=== PATIENT | male | born 1975 | race Caucasian/White ===

== ENCOUNTER 2017-05-13 17:43 | Emergency (ER) | payer OTHER ==
[2017-05-13] MEDS ORDERED: LIBRIUM 25 MG PO ONE (17:53)
[2017-05-13] MEDS ORDERED: Sodium Chloride 0.9% 1000 ML 1,000 ML IV STA ×2 (18:14→19:26)
[2017-05-13] MEDS ORDERED: Sodium Chloride 0.9% 1000 ML 1,000 ML ONE ×2 (18:19→19:30)
[2017-05-13 18:45] LABS: Mean Cell Volume 85.8 fl (78-100); Mean Corpuscular Hemoglobin 29.8 pg (26-32); Mean Platelet Volume 10.2 fl (6-9.5); Platelet Count 243 K/mm3 (150-450); Red Cell Distribution Width 13.7 % (11.5-14.0)
[2017-05-13 19:03] LABS: ALBUMIN 3.7 g/dL (3.4-5.0); ALKALINE PHOSPHATASE 42 U/L (46-116); ANION GAP 14.4 MEQ/L (5-15); BLOOD UREA NITROGEN 12 mg/dL (9-20); CHLORIDE 107 mEq/L (98-107); Carbon Dioxide 22.4 mEq/L (21-32); Glucose 112 MG/DL (70-110); Potassium 3.3 mEq/L (3.5-5.1); SGOT/AST 19 U/L (15-37); SGPT/ALT 29 U/L (12-78); SODIUM 141 mEq/L (136-145); Total Protein 6.6 gm/dL (6.4-8.2)
--- NOTE | 2017-05-13 19:05 | ERPHSYRPT ---
- History of Present Illness Time Seen by Provider: 05/13/17 18:00 Source: patient Exam Limitations: clinical condition Patient Subjective Stated Complaint: pt here for high blood pressure and increase heart rate.b/p was 160/110 taken at home with hr of 115. pt states he has throbbing to head ,slight nausea Triage Nursing Assessment: pt walked in, resp easy, skin w/d, pink,no edema noted, moves all ext well, hr regular Physician History: PATIENT WITH HISTORY OF HYPERTENSION, DEPRESSION, MIGRAINE HEADACHES, AND CHRONIC PAIN COMPLAINS OF RAPID HEART RATE AND ELEVATED BLOOD PRESSURE FOR 1-2 WEEKS. TREATED AT [facility] FOR TACHYCARDIA WITH DIZZINESS AFTER DONATING PLASMA ON 05/08/2017. ALSO ADMITS TO HAVING EMESIS 2-3 TIMES DAILY FOR 4-5 DAYS. DENIES CHEST PAIN, DYSPNEA, ABDOMINAL PAIN OR DIARRHEA. Timing/Duration: day(s) Activities at Onset: none Severity of Pain-Max: none Severity of Pain-Current: none Modifying Factors: Improves With: other (RAPID HEART BEAT) Nitro Today/Relief: no nitro taken today Aspirin Treatment Today: no aspirin today Associated Symptoms: other (ELEVATED BLOOD PRESSURE, RAPID HEART RATE) Allergies/Adverse Reactions: Penicillins Allergy (Severe, Verified 07/23/14 11:24) anaphylactic pt's mother says had hives chicken derived Allergy (Verified 05/13/17 17:59) Home Medications: Albuterol Sulfate Mdi [Proair Hfa MDI] 2 puff IH DAILY 09/09/13 [History] Buspirone HCl 5 mg [Buspar 5 mg] 15 mg PO BID 09/09/13 [History] Fluticasone/Salmeterol Disc [Advair 250-50 Diskus 14 Dose] 1 puff IH DAILY 09/09/13 [History] Loratadine 10 mg [Claritin 10 mg] 10 mg PO DAILY 09/09/13 [History] Oxybutynin Chloride 5 mg [Ditropan 5 MG] 5 mg PO BID 09/09/13 [History] Sumatriptan Succinate [Imitrex] 100 mg PO UD 09/09/13 [History] Famotidine [Pepcid] 40 mg PO HS 07/21/14 [History] Naproxen [Naprosyn] 500 mg PO DAILY 07/21/14 [History] Promethazine HCl 25 mg [Phenergan 25 mg] 25 mg PO Q6H PRN PRN 07/21/14 [ History] Triamcinolone Acetonide [Nasacort] 10.8 ml NEBULIZE UD 07/23/14 [History] Aspirin 81 gm Chew [Baby Aspirin 81 mg Chew] 81 mg DAILY 05/13/17 [History ] Citalopram Hydrobromide 20 mg* [ceLEXa 20 MG] 20 mg DAILY 05/13/17 [History] Diphenoxylate HCl/Atropine [Lomotil 2.5-0.025 mg Tablet] 1 ea QID 05/13/17 [ History] Temazepam [Restoril] 30 mg DAILY 05/13/17 [History] Hx Tetanus, Diphtheria Vaccination/Date Given: Yes Hx Influenza Vaccination/Date Given: Yes Hx Pneumococcal Vaccination/Date Given: Yes Immunizations Up to Date: Yes - Review of Systems Constitutional: No Fever, No Chills Eyes: No Symptoms Ears, Nose, & Throat: No Symptoms Respiratory: No Cough, No Dyspnea Cardiac: Palpitations, No Chest Pain, No Edema, No Syncope Abdominal/Gastrointestinal: Nausea, Vomiting, No Abdominal Pain, No Diarrhea Genitourinary Symptoms: No Symptoms, No Dysuria Musculoskeletal: No Symptoms, No Back Pain, No Neck Pain Skin: No Symptoms, No Rash Neurological: No Dizziness, No Focal Weakness, No Sensory Changes Psychological: No Symptoms Endocrine: No Symptoms All Other Systems: Reviewed and Negative - Past Medical History Pertinent Past Medical History: Yes Neurological History: Migraines ENT History: No Pertinent History Cardiac History: Hypertension Respiratory History: COPD Endocrine Medical History: No Pertinent History Musculoskeletal History: No Pertinent History GI Medical History: No Pertinent History History: No Pertinent History Psycho-Social History: Depression, Other Male Reproductive Disorders: No Pertinent History Other Medical History: Suicidal ideations - Past Surgical History Past Surgical History: No Neuro Surgical History: No Pertinent History Cardiac: No Pertinent History Respiratory: No Pertinent History Gastrointestinal: Cholecystectomy, Other Genitourinary: No Pertinent History Musculoskeletal: No Pertinent History Male Surgical History: No Pertinent History - Social History Smoking Status: Never smoker Exposure to second hand smoke: No Drug Use: none Patient Lives Alone: No - Nursing Vital Signs Nursing Vital Signs: Initial Vital Signs Temperature 97.4 F Temperature Source Oral Pulse Rate 88 Respiratory Rate 16 Blood Pressure [Right Arm] 138/80 Pain Intensity 0 - Physical Exam General Appearance: no apparent distress, alert Eye Exam: PERRL/EOMI, eyes nml inspection Ears, Nose, Throat Exam: normal ENT inspection, moist mucous membranes Neck Exam: normal inspection, non-tender, supple Respiratory Exam: normal breath sounds, lungs clear, No respiratory distress Cardiovascular Exam: regular rate/rhythm, normal heart sounds, tachycardia, No edema Gastrointestinal/Abdomen Exam: soft, normal bowel sounds (NONTENDER), No tenderness, No mass Back Exam: normal inspection, No CVA tenderness, No vertebral tenderness Extremity Exam: normal inspection, normal range of motion Neurologic Exam: alert, oriented x 3, cooperative, normal mood/affect, nml cerebellar function, sensation nml, No motor deficits Skin Exam: normal color, warm, dry Lymphatic Exam: No adenopathy SpO2 Interpretation: normal SpO2: 100 Oxygen Delivery: Room Air - Course EKG Interpreted by Me: RATE, Sinus Rhythm, Sinus Tach Ordered Tests: Active Orders 24 hr Category Date Time Status Clean Catch Urine Specimen STAT Care 05/13/17 18:16 Active CBC W DIFF Stat Lab 05/13/17 18:30 Completed CMP Stat Lab 05/13/17 18:30 Completed Manual Differential NC Stat Lab 05/13/17 18:30 Completed TROPONIN Q3H Lab 05/13/17 18:30 Completed TROPONIN Q3H Lab 05/13/17 21:15 Ordered TROPONIN Q3H Lab 05/14/17 00:15 Ordered TROPONIN Q3H Lab 05/14/17 03:15 Ordered TROPONIN Q3H Lab 05/14/17 06:15 Ordered TSH [TSH, 3RD Generation] Stat Lab 05/13/17 18:30 Completed UA Stat Lab 05/13/17 19:05 Completed Urine Triage Profile Stat Lab 05/13/17 18:20 Completed Medication Summary Discontinued Medications Generic Name Dose Route Start Last Admin Trade Name Freq PRN Reason Stop Dose Admin Chlordiazepoxide HCl 50 mg 05/13/17 17:53 05/13/17 18:08 Librium 25 Mg PO 05/13/17 17:54 Not Given STAT ONE Sodium Chloride 1,000 mls @ 999 mls/hr 05/13/17 18:14 05/13/17 18:21 Sodium Chloride 0.9% 1000 Ml IV 05/13/17 19:14 999 mls/hr .Q1H1M STA Administration Sodium Chloride Confirm 05/13/17 18:19 Sodium Chloride 0.9% 1000 Ml Administered 05/13/17 18:20 Dose 1,000 mls @ ud .ROUTE .STK-MED ONE Sodium Chloride 1,000 mls @ 999 mls/hr 05/13/17 19:26 05/13/17 19:36 Sodium Chloride 0.9% 1000 Ml IV 05/13/17 20:26 999 mls/hr .Q1H1M STA Administration Sodium Chloride Confirm 05/13/17 19:30 Sodium Chloride 0.9% 1000 Ml Administered 05/13/17 19:31 Dose 1,000 mls @ ud .ROUTE .STK-MED ONE Potassium Chloride 40 meq 05/13/17 19:25 05/13/17 19:35 Klor Con 10 Meq PO 05/13/17 19:26 40 meq STAT ONE Administration Potassium Chloride Confirm 05/13/17 19:29 Klor Con 10 Meq Administered 05/13/17 19:30 Dose 40 meq PO .STK-MED ONE Lab/Rad Data: Laboratory Result Diagrams 05/13/17 18:30 05/13/17 18:30 Laboratory Results 05/13/17 05/13/17 05/13/17 Range/Units 19:05 18:30 18:30 WBC (4.0-10.5) K/mm3 RBC (4.1-5.6) M/mm3 Hgb (12.5-18.0) gm/dl Hct (42-50) % MCV (78-100) fl MCH (26-32) pg MCHC (32-36) g/dl RDW (11.5-14.0) % Plt Count (150-450) K/mm3 MPV (6-9.5) fl Sodium (136-145) mEq/L Potassium (3.5-5.1) mEq/L Chloride (98-107) mEq/L Carbon Dioxide (21-32) mEq/L Anion Gap (5-15) MEQ/L BUN (9-20) mg/dL Creatinine (0.55-1.30) mg/dl Estimated GFR ML/MIN Glucose (70-110) MG/DL Calcium (8.5-10.1) mg/dL Total Bilirubin (0.2-1.0) mg/dL AST (15-37) U/L ALT (12-78) U/L Alkaline Phosphatase (46-116) U/L Troponin I < 0.017 (0.000-0.056) ng/ml Serum Total Protein (6.4-8.2) gm/dL Albumin (3.4-5.0) g/dL TSH 3rd Generation 2.031 (0.358-3.740) mIU/L Ur Collection Type CLEAN CATCH Urine Color LT.YELLOW (YELLOW) Urine Appearance CLEAR (CLEAR) Urine pH 6.0 (5-6) Ur Specific [place] 1.000 (1.005-1.025) Urine Protein NEGATIVE (Negative) Urine Ketones NEGATIVE (NEGATIVE) Urine Blood NEGATIVE (0-5) Tee/ul Urine Nitrite NEGATIVE (NEGATIVE) Urine Bilirubin NEGATIVE (NEGATIVE) Urine Urobilinogen NORMAL (0-1) mg/dL Ur Leukocyte Esterase NEGATIVE (NEGATIVE) Urine Glucose NEGATIVE (NEGATIVE) mg/dL Urine Opiates Level (NEGATIVE) Ur Methadone (NEGATIVE) Urine Barbiturates (NEGATIVE) Ur Phencyclidine (PCP) (NEGATIVE) Urine Amphetamine (NEGATIVE) U Benzodiazepine Level (NEGATIVE) Urine Cocaine (NEGATIVE) Urine Marijuana (THC) (NEGATIVE) Specimen Received 05/13/17:1905. 05/13/17 05/13/17 05/13/17 Range/Units 18:30 18:30 18:20 WBC 8.0 (4.0-10.5) K/mm3 RBC 5.90 H (4.1-5.6) M/mm3 Hgb 17.6 (12.5-18.0) gm/dl Hct 50.6 H (42-50) % MCV 85.8 (78-100) fl MCH 29.8 (26-32) pg MCHC 34.8 (32-36) g/dl RDW 13.7 (11.5-14.0) % Plt Count 243 (150-450) K/mm3 MPV 10.2 H (6-9.5) fl Sodium 141 (136-145) mEq/L Potassium 3.3 L (3.5-5.1) mEq/L Chloride 107 (98-107) mEq/L Carbon Dioxide 22.4 (21-32) mEq/L Anion Gap 14.4 (5-15) MEQ/L BUN 12 (9-20) mg/dL Creatinine 0.86 (0.55-1.30) mg/dl Estimated GFR > 60 ML/MIN Glucose 112 H (70-110) MG/DL Calcium 8.9 (8.5-10.1) mg/dL Total Bilirubin 0.60 (0.2-1.0) mg/dL AST 19 (15-37) U/L ALT 29 (12-78) U/L Alkaline Phosphatase 42 L (46-116) U/L Troponin I (0.000-0.056) ng/ml Serum Total Protein 6.6 (6.4-8.2) gm/dL Albumin 3.7 (3.4-5.0) g/dL TSH 3rd Generation (0.358-3.740) mIU/L Ur Collection Type Urine Color (YELLOW) Urine Appearance (CLEAR) Urine pH (5-6) Ur Specific [place] (1.005-1.025) Urine Protein (Negative) Urine Ketones (NEGATIVE) Urine Blood (0-5) Tee/ul Urine Nitrite (NEGATIVE) Urine Bilirubin (NEGATIVE) Urine Urobilinogen (0-1) mg/dL Ur Leukocyte Esterase (NEGATIVE) Urine Glucose (NEGATIVE) mg/dL Urine Opiates Level NEG. (NEGATIVE) Ur Methadone NEG. (NEGATIVE) Urine Barbiturates NEG. (NEGATIVE) Ur Phencyclidine (PCP) NEG. (NEGATIVE) Urine Amphetamine NEG. (NEGATIVE) U Benzodiazepine Level NEG. (NEGATIVE) Urine Cocaine NEG. (NEGATIVE) Urine Marijuana (THC) NEG. (NEGATIVE) Specimen Received - Progress Progress Note: 05/13/17 19:36 PATIENT GIVEN IV FLUIDS NORMAL SALINE 1 LITER OVER 1 HOUR X 2. ADMITS BETA BLOCKERS CAUSES NAUSEA, DENIES ALLERGIES Counseled pt/family regarding: lab results, diagnosis, need for follow-up - Departure Time of Disposition: 20:40 Departure Disposition: Home Clinical Impression: HYPOKALEMIA, ARRHYTHMIA-TACHYCARDIA Condition: Stable Critical Care Time: No Referrals: KELSEY ZHOU [Primary Care Provider] - Additional Instructions: CONTINUE ALL CURRENT MEDICATIONS. FOLLOWUP WITH DR ZHOU SCHEDULED. KLOR CON 20MEQ DAILY FOR 1 WEEK FOR TREATMENT OFF LOW POTASSIUM. Prescriptions: Potassium Chloride 20 Meq [Klor-Con 20 MEQ] 20 meq PO DAILY #7 tab
[2017-05-13] MEDS ORDERED: Klor Con 10 MEQ PO ONE ×2 (19:25→19:29)
[2017-05-13 19:28] LABS: Collection Type CLEAN CATCH
[2017-05-13 19:29] LABS: Bilirubin NEGATIVE (NEGATIVE); Blood NEGATIVE Ery/ul (0-5); COMPLETE URINE MICROSCOPIC? NO; Glucose NEGATIVE (NEGATIVE); Leukocyte Esterase NEGATIVE (NEGATIVE)
[2017-05-13 20:23] VITALS: O2SAT 100
[2017-05-13 20:39] VITALS: BP 130/86; PULSE 96
[2017-05-13 23:10] LABS: Platelet Estimate NORMAL (NORMAL); Total Cells Counted 100
== END 2017-05-13 20:48 | disposition home or self-care (01) ==
LOC: ED 17:43
DX: E87.6 Hypokalemia (principal); R00.0 Tachycardia, unspecified; I10 Essential (primary) hypertension; Z79.899 Other long term (current) drug therapy
CPT/HCPCS: 36000; 36415; 80053; 80307; 81002; 84443; 84484; 85025; 96360; 96365; 99284; A9270-GY

== ENCOUNTER 2017-08-10 06:34 | Day surgery (SDC) | payer OTHER ==
[2017-08-10] MEDS ORDERED: Ketamine HCl 50 MG/ML IJ ONE (06:35)
[2017-08-10] MEDS ORDERED: DIPRIVAN 200 MG/20 ML IV ONE (06:35)
[2017-08-10] MEDS ORDERED: Lactated Ringers 1,000 ML IV SCH (07:00)
[2017-08-10 09:22] VITALS: BP 117/70; PULSE 85; O2SAT 100
--- NOTE | 2017-08-10 09:55 | OP ---
SURGERY DATE/TIME: 08/10/2017 0753 PREOPERATIVE DIAGNOSIS: History of colon polyps and chronic diarrhea. POSTOPERATIVE DIAGNOSIS: Normal colon. PROCEDURE: Colonoscopy. SURGEON: Dr. Chew. ANESTHESIA: MAC. Medications given by anesthesia department. HISTORY: The patient is a 41 year-old white male patient who reports he has been having diarrhea for the past seven years. He has had his gallbladder removed. He had a previous colonoscopy two years when which polyps were found. He now represents for polyp surveillance. The patient was appraised of the risks of the procedure including the risk of perforation, phlebitis, untoward reaction to medication, bleeding and missed lesions. The patient verbalized his understanding and desired to have the procedure performed. DESCRIPTION OF PROCEDURE: The patient was given the medications by the anesthesia department. He had continuous pulse oximetry, ECG monitoring, intermittent blood pressure monitoring and tidal CO2 monitoring during the examination. He was placed in the left lateral decubitus position. A digital rectal examination was performed and revealed normal anal sphincter tone, no masses and normal prostate. The flexible Olympus pediatric colonoscope was used to intubate the rectum. A view of the colon was developed sequentially to the cecum including a short distance into the terminal ileum. Upon insertion and withdrawal, including a retroflex view in the rectum, no mucosal lesions were encountered. The scope was removed from the patient who tolerated the procedure well and was sent back to OP recovery in good condition. The prep was noted to be fair to good.
== END 2017-08-10 09:30 | disposition home or self-care (01) ==
LOC: SDC 06:34
PROVIDERS: ATTEND Family Medicine
PROC: 0DJD8ZZ Inspection of Lower Intestinal Tract, Via Natural or Artificial Opening Endoscopic (ICD-10-PCS; principal; 2017-08-10)
DX: K52.9 Noninfective gastroenteritis and colitis, unspecified (principal); Z86.010 Personal history of colon polyps
CPT/HCPCS: 00810; J2704

== ENCOUNTER 2019-05-08 11:00 | Day surgery (SDC) | payer OTHER ==
--- NOTE | 2019-05-08 08:05 | HP ---
DATE OF SURGERY: 05/08/2019 HISTORY OF PRESENT ILLNESS: The patient is a 43 year-old with bulge in old epigastric port area incision. Occasional pain at times, likely has got some incarcerated preperitoneal fat in the area. PAST MEDICAL HISTORY: Hypertension. Asthma. Chronic obstructive pulmonary disease. Back problems in the past. PAST SURGICAL HISTORY: Laparoscopic cholecystectomy in the past. MEDICATIONS: Amlodipine, buspirone, citalopram, diclofenac, dry eye relief, epinephrine injection PRN, famotidine, Flovent, fluconazole, ipratropium, Albuterol, Klor-Con, loratadine, low-dose aspirin, Naprosyn, oxybutynin, pantoprazole, potassium chloride, topiramate, Imitrex, Ventolin HFA. ALLERGIES: PENICILLIN, METHLODINE. FAMILY HISTORY: Negative in regards to this problem. SOCIAL HISTORY: He denies smoking or alcohol abuse. REVIEW OF SYSTEMS: Fourteen systems reviewed per admission assessment. No chest pain or palpitations other systems negative or noncontributory as above and per preadmission questionnaire. He did have history of migraines in the past as well as the above mentioned problem. PHYSICAL EXAMINATION: GENERAL: No acute distress. HEENT: Sclerae nonicteric. NECK: No JVD. CHEST: Equal excursion, nonlabored breathing. CVS: Regular rate and rhythm. ABDOMEN: Soft. He has an upper abdomen old port incision area has a bulge likely with some incarcerated preperitoneal fat or omentum. I feel he will benefit from repair with mesh. EXTREMITIES: No significant edema. NEURO: Alert, oriented, moving extremities symmetrically. No gross motor deficits noted. IMPRESSION: Incarcerated ventral incisional epigastric hernia. I feel he will benefit from repair with mesh. Risks and benefits explained in detail but not limited to bleeding or infection, risk of hematoma or seroma formation, risk of aches, pains, burning, numbness possible [facility] or chronic in nature, risk of ingrown hair or suture reaction, risk of mesh infection possibly requiring removal, risk of adhesion or scar formation or obstruction down the road, remote risk of mesh fracture or failure possibly creating issues with viscera, other structures possibly requiring other procedures or ongoing morbidity, overall risk of hernia recurrence, general risk of anesthesia, deep venous thrombosis, pulmonary embolism, pneumonia but not limited to. He understands all the above but not limited to, will proceed with repair of incarcerated epigastric ventral incisional hernia with mesh as an outpatient.
[~2019-05-08 11:00] MED LIST: CLINDAMYCIN-D5W 900 MG/50 ML*** 900 MG/50 ML BAG IV SCH; KEFZOL 1 GM ONE; Lactated Ringers 1,000 ML IV ONE; Lactated Ringers 1,000 ML IV SCH; Sensorcaine 0.25% 10 ML ONE
[2019-05-08] MEDS ORDERED: Lactated Ringers 1,000 ML IV ONE (11:09)
[2019-05-08 12:08] LABS: ANION GAP 10.9 MEQ/L (5-15); BLOOD UREA NITROGEN 11 mg/dL (9-20); CHLORIDE 103 mmol/L (98-107); Calcium 9.3 mg/dL (8.4-10.2); Carbon Dioxide 29 mmol/L (22-30); Creatinine 1 0.74 mg/dL (0.66-1.25); Glucose 87 mg/dL (74-106); Potassium 3.3 mmol/L (3.5-5.1); SODIUM 140 mmol/L (137-145)
[2019-05-08] MEDS ORDERED: Versed 2 MG/2 ML Injection ONE (12:42)
[2019-05-08] MEDS ORDERED: SUBLIMAZE 250 MCG/5 ML ONE (12:42)
[2019-05-08] MEDS ORDERED: Zemuron 100 MG/10 ML ONE (12:42)
[2019-05-08] MEDS ORDERED: DIPRIVAN 200 MG/20 ML IV ONE (12:42)
[2019-05-08] MEDS ORDERED: BRIDION 200MG/2ML IV ONE (12:53)
[2019-05-08] MEDS ORDERED: SUBLIMAZE 100 MCG/2 ML ONE (16:27)
[2019-05-08 17:34] VITALS: BP 130/82; PULSE 78; O2SAT 96
--- NOTE | 2019-05-09 08:24 | OP ---
SURGERY DATE/TIME: 05/08/2019 1522 PREOPERATIVE DIAGNOSIS: Incarcerated epigastric ventral hernia. POSTOPERATIVE DIAGNOSIS: Two incarcerated epigastric ventral hernias. PROCEDURE: Repair of incarcerated ventral hernias with mesh. SURGEON: Dr. Kingsley Jorge. SQUARE DANCE CALLER: Angel Dang, Medical Student III. ANESTHESIA: General. ESTIMATED BLOOD LOSS: Minimal. INDICATIONS: As noted above. Risks and benefits explained in detail and not limited to and consent obtained. DESCRIPTION OF PROCEDURE AND FINDINGS: The patient is taken to the operating room. General anesthesia induced. Abdomen prepped and draped in usual sterile fashion. After official time out and no disagreement with planned procedure, a transverse incision made in the epigastrium. Dissection carried down circumferentially around the larger incarcerated epigastric ventral hernia. There was a smaller one more cephalad. Fascia was cleared circumferentially around these. The incarcerated attachments released. The incarcerated preperitoneal fat was reduced back down and part of the falciform was reduced back down in the abdomen. Old fascial bed was disconnected to allow for better overlap in all directions. The fascia was cleared circumferentially around the defect to allow for mesh placement. It was felt size [address] was most appropriate size mesh to use. It was carefully inserted. Straps pulled upward. It was flattened and secured 1 cm apart circumferentially around the edges with tension free interrupted 0 Prolene flattening the mesh as well as possible. There was no visible crinkles at this time. The attenuated fascia was then closed over the top of defect with 0 PDS. 0.25% Marcaine local injected along the fascia and skin incision. Subcu irrigated out. Subcu closed with 3-0 Vicryl. Skin closed with 4-0 Vicryl. Again, 0.25% Marcaine local injected along the fascia and along skin incision. Steri-Strips, sterile dressing and abdominal binder given to the patient. The patient tolerated the procedure well. There were no immediate complications. Findings discussed with the family out in the waiting area. He was transferred to recovery room in stable condition.
== END 2019-05-08 18:18 | disposition home or self-care (01) ==
LOC: SDC 11:00
PROVIDERS: ATTEND Surgery
DX: K43.6 Other and unspecified ventral hernia with obstruction, without gangrene (principal); I10 Essential (primary) hypertension; J44.9 Chronic obstructive pulmonary disease, unspecified; Z79.899 Other long term (current) drug therapy
CPT/HCPCS: 36415; 80048; J0690; J2250; J2704; J3010; L0625